=== PATIENT | male | born 1990 | race Caucasian/White ===

== ENCOUNTER 2018-08-24 17:40 | Emergency (ER) | payer SELFPAY ==
[~2018-08-24] VITALS: Ht 172.7 cm; Wt 70.3 kg
[2018-08-24 17:40] VITALS: BP 132/73
[2018-08-24] MEDS ORDERED: ONDANSETRON 4 MG TAB.RAPDIS SL ONE (18:30)
[2018-08-24] MEDS ORDERED: ONDANSETRON 4 MG TAB.RAPDIS ONE ×2 (18:36→18:43)
== END 2018-08-24 19:32 | disposition home or self-care (01) ==
LOC: ER 17:45
DX: A08.4 Viral intestinal infection, unspecified (principal)
CPT/HCPCS: Q0162